=== PATIENT | male | born 1970 | race Asian ===

== ENCOUNTER 2021-02-11 13:03 | Emergency (ER) | payer OTHER, SELFPAY ==
[2021-02-11 13:26] VITALS: BP 137/71; PULSE 81; RESP 16; TEMP 37; O2SAT 96; BMI 24.3
--- NOTE | 2021-02-11 16:55 | PC.NURSE ---
Right ear abcess, draining. Pt states he had similar occurrence in August treated with medications, noticed tenderness on Thursday and today ear is swollen with drainage.
[2021-02-11 16:57] VITALS: BP 144/77; PULSE 64; RESP 16; O2SAT 98
--- NOTE | 2021-02-11 17:41 | ED.SKABFB ---
HPI - Skin/Abscess/Foreign Bdy General Chief complaint: Skin/Abscess/Foreign Body Stated complaint: Right Ear Leaking Fluids Time Seen by Provider: 02/11/21 16:59 Source: patient Mode of arrival: Ambulatory History of Present Illness HPI narrative: 50-year-old male daily smoker with history of skin infections including fungal infections of his ear presents with a chief complaint of a few days of itchy, irritating clear drainage from his right external ear. He denies any pain or change in hearing. He denies any change in hearing. He has had no runny nose, fever or chills. He denies any sneezing, coughing, chest pain or trouble breathing. Related Data Previous Rx's Medication Instructions Recorded doxycycline hyclate 100 mg tablet 100 mg PO BID #20 tab 02/11/21 ketoconazole 2 % topical cream 1 applic TOPICAL BID 7 Days #15 g 02/11/21 Allergies Allergy/AdvReac Type Severity Reaction Status Date / Time No Known Drug Allergies Allergy Unverified 02/11/21 13:29 Review of Systems Review of Systems Narrative: GENERAL: Denies chills, fatigue, malaise, fever, sweats. HEENT: Denies sinus pain, ear pain, sore throat, difficulty swallowing, dizziness. RESPIRATORY: Denies dyspnea, cough, wheezing, hemoptysis, sputum. CARDIOVASCULAR: Denies chest pain, palpitations, orthopnea, edema, GASTROINTESTINAL: Denies nausea, vomiting, abdominal pain, diarrhea, constipation, melena. : Denies dysuria, frequency, incontinence, hematuria, urinary retention. MUSCULOSKELETAL: denies weakness, joint pain, or bony pain SKIN: See HPI NEUROLOGIC: Denies weakness, headache, numbness, change in speech, confusion, seizures, incoordination. PSYCHIATRIC: No concerning psychosocial issues. 12 point review of systems is negative except for those stated above Patient History Social History Smoking Status: Current every day smoker Smoking Status: Current every day smoker Substance Use Type: does not use Exam Narrative Exam Narrative: GEN: AOx3 and in mild distress EYES: Pupils are equal, round, and reactive to light and accommodation. Extraoccular muscles are intact bilaterally. There is no subconjunctival hemorrhage or exudate. CHEST: Lungs are clear to auscultation bilaterally and free of wheezes, rales, or rhonchi. Heart rate is regular rhythm, there are no murmurs, clicks, rubs, or gallops. There is no chest wall tenderness. ABD: Abdomen is soft and nontender. There is no guarding or rebound. Bowel sounds are normal in all 4 quadrants. There is no mass or organomegaly. EXT: Full painless ROM of all extremities with no loss of sensation or strength. SKIN: Swelling of R auricle, with clear drainage, no fluctuance. Initial Vital Signs Initial Vital Signs: Vital Signs Temperature 98.6 F 02/11/21 13:26 Pulse Rate 81 02/11/21 13:26 Respiratory Rate 16 02/11/21 13:26 Blood Pressure 137/71 02/11/21 13:26 Pulse Oximetry 96 02/11/21 13:26 Course Orders Ordered: ED Orders 02/11/21 17:48 Wound Culture and Gram Stain Stat Vital Signs Vital signs: Vital Signs - 8 hr 02/11/21 13:26 02/11/21 16:57 Temperature 98.6 F Pulse Rate 81 64 Respiratory Rate 16 16 Blood Pressure 137/71 144/77 H Pulse Oximetry 96 98 MDM - Skin/Abscess/Foreign Bdy MDM Narrative Medical decision making narrative: Patient without signs of sepsis, hearing loss or change nor abscess presents with itchy slightly swollen external right ear, largely the superior portion of helix without induration or fluctuance to suggest abscess. It is not painful but itchy. Patient states he has had this before and after multiple cultures was told that it was fungal in nature. This seems consistent with the examination I am seeing. Attempts have been made to obtain records from [place] [facility], however what they sent does not include the cultures. I did obtain a culture today and at extensive discussion with the patient about how to proceed, we agree that a topical antifungal as well as oral antibiotic for the potential of superinfection is most reasonable. He has been given return precautions and questions have been answered to his apparent satisfaction Discharge Plan Departure Patient Disposition: Home Clinical Impression: Cellulitis of helix of right ear Instructions: DI for Cellulitis -- Adult Activity Restrictions/Additional Instructions: *You have been diagnosed with [cellulitis of right auricle] *What to do: *Please continue to take your regular medications as directed. [ x] New medication prescriptions sent to your pharmacy: [ [facility]] [ ] New medication written as a paper prescription [ ] No new medications given *Please follow up with your primary care provider in 2-3 days, call for an appointment. Let them know you were seen in the Emergency Department and that we ask that you be seen in follow up. We will electronically transmit a record of today's note if your PCP is in our system *If you do not have a primary care provider please contact the [facility] Resource line at [phone]. They will ask some questions about your medical history and help get you set up with a doctor in the community. *Return to Emergency Department if you should have any new, worsening or concerning symptoms, such as [fever greater than 101 F, shaking chills, worsening pain, persistent vomiting or other bothersome symptoms] Prescriptions: New ketoconazole 2 % cream 1 applic topical BID 7 Days Qty: 15 RF: 0 doxycycline hyclate 100 mg tablet 100 mg PO BID Qty: 20 RF: 0 Referrals: Miscellaneous,DoctorMD [Primary Care Provider] -
[2021-02-11 18:43] VITALS: BP 136/87; PULSE 74; RESP 16; O2SAT 99
== END 2021-02-11 18:43 | disposition home or self-care (01) ==
PROVIDERS: Emergency Provider Emergency Medicine
DX: H60.11 Cellulitis of right external ear (principal)
CPT/HCPCS: 87070; 87075; 87077; 87147; 87186; 87205; 99282